=== PATIENT | female | born 1950 | race Caucasian/White ===

== ENCOUNTER → 2017-04-23 | Outpatient (CLI) | payer MEDICARE, OTHER ==
--- NOTE | 2017-04-23 13:57 | KCIC ---
MR of the right knee HISTORY: Acute pain and instability. Evaluate for medial collateral ligament injury. Medial knee pain for one month. TECHNIQUE: Routine multiplanar sequences are obtained. FINDINGS: Degenerative tear of the medial meniscus. Medial meniscus is extruded out of the joint compartment and into the tibial recess. Mild signal within the lateral meniscus with mild surface violation compatible with a tear. Anterior and posterior cruciate ligaments are intact. Mild proximal medial collateral ligament sprain or scarring. Iliotibial band unremarkable. Fibular collateral ligament, biceps femoris tendon and popliteus tendon are intact. Extensor mechanism is intact. Small joint effusion. No evidence of osteochondral loose body. 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 Moderate chondromalacia of the lateral joint compartment. Severe chondromalacia at the patellofemoral joint compartment. No bone lesion. No acute fracture. Small Chapman's cyst. Mild lateral patellar tilt and subluxation. Very small Chapman's cyst. IMPRESSION: 1. Medial meniscal tear. 2. Lateral meniscal tear. 3. Primary osteoarthritis. Electronically signed by: Liagn Alston MD (04/23/2017 1:54 PM)
== END | disposition home or self-care (01) ==
LOC: KCIC MRI 12:46
PROVIDERS: ATTEND Family Medicine
DX: S83.241A Other tear of medial meniscus, current injury, right knee, initial encounter (principal); S83.281A Other tear of lateral meniscus, current injury, right knee, initial encounter; M17.11 Unilateral primary osteoarthritis, right knee; M71.21 Synovial cyst of popliteal space [Baker], right knee; X58.XXXA Exposure to other specified factors, initial encounter; Y93.89 Activity, other specified; Y92.89 Other specified places as the place of occurrence of the external cause; Y99.8 Other external cause status
CPT/HCPCS: 73721